=== PATIENT | male | born 1980 | race American Indian/Alaskan Native ===

== ENCOUNTER 2016-11-01 12:31 | Emergency (ER) | payer MEDICAID ==
[2016-11-01 13:42] LABS: RBC URINE < 1 /hpf (0-3); URINE BILIRUBIN NEGATIVE (NEGATIVE); URINE BLOOD NEGATIVE (NEGATIVE); URINE COLOR Yellow (YELLOW); URINE GLUCOSE (UA) NORMAL (Normal); URINE KETONE NEGATIVE (NEGATIVE); URINE LEUKOCYTE ESTERASE NEG Leu/uL (Negative); URINE PROTEIN NEGATIVE (NEGATIVE); URINE UROBILINOGEN NORMAL mg/dL (0.2-1.0); WBC URINE 2 /hpf (0-5)
--- NOTE | 2016-11-01 13:59 | C.PDOC ---
History Of Present Illness Pt has multiple medical complaints, including sore throat, abdominal discomfort and urinary symptoms. Time Seen by Provider: 11/01/16 12:46 Chief Complaint (Nursing): Medical Clearance History Per: Patient Onset/Duration Of Symptoms: Days (few) Current Symptoms Are (Timing): Still Present Severity: Moderate Additional History Per: Prior Records Past Medical History Reviewed: Historical Data, Nursing Documentation, Vital Signs Vital Signs: Last Vital Signs Temp 98.5 F 11/01/16 12:37 Pulse 84 11/01/16 12:37 Resp 18 11/01/16 12:37 BP 131/74 11/01/16 12:37 Pulse Ox 99 11/01/16 12:37 - Medical History PMH: No Chronic Diseases Surgical History: No Surg Hx - [facility] Procedures APPLICATION OF SPLINT (03/14/13) TETANUS TOXOID ADMINIST (10/31/12) Family History: States: Unknown Family Hx - Social History Hx Tobacco Use: No Hx Alcohol Use: No Hx Substance Use: No - Immunization History Hx Tetanus Toxoid Vaccination: No Hx Influenza Vaccination: No Hx Pneumococcal Vaccination: No Review Of Systems Except As Marked, All Systems Reviewed And Found Negative. Constitutional: Negative for: Fever ENT: Positive for: Throat Pain. Negative for: Nose Congestion Cardiovascular: Negative for: Chest Pain Respiratory: Negative for: Cough, Shortness of Breath Gastrointestinal: Negative for: Vomiting Genitourinary: Negative for: Hematuria, Penile Discharge, Scrotal Pain Musculoskeletal: Negative for: Neck Pain, Back Pain Skin: Negative for: Rash Neurological: Negative for: Weakness, Numbness, Seizures, Altered Mental Status Physical Exam - Physical Exam Appears: Non-toxic, No Acute Distress Skin: Normal Color, Warm, Dry, No Rash Head: Atraumatic, Normacephalic Eye(s): bilateral: Normal Inspection, PERRL, EOMI Throat: Erythema, No Drooling, No Mass Neck: Normal ROM, Supple Cardiovascular: Rhythm Regular Respiratory: Normal Breath Sounds, No Accessory Muscle Use Gastrointestinal/Abdominal: Soft, No Tenderness, No Distention Back: No CVA Tenderness Male Genital: No Testicular Tenderness, No Testicular Swelling, No Inguinal Tenderness, No Inguinal Swelling, No Scrotal Swelling, Circumcised Extremity: Normal ROM Neurological/Psych: Oriented x3, Normal Speech, Normal Motor, Normal Sensation ED Course And Treatment O2 Sat by Pulse Oximetry: 99 Pulse Ox Interpretation: Normal Reassessment Condition: Improved Disposition Counseled Patient/Family Regarding: Studies Performed, Diagnosis, Need For Followup, Rx Given - Disposition Disposition: HOME/ ROUTINE Disposition Time: 13:59 Condition: STABLE Additional Instructions: Drink plenty of fluids. Follow up with your doctor or in the clinic. Return to the ER if you develop fever, vomiting, worsening of symptoms or if you have any other concerns. Prescriptions: Amoxicillin 875 mg PO BID #20 tab L.acidoph,Paracasei, B.lactis [Probiotic] 1 each PO BID #60 capsule Instructions: Pharyngitis (ED) Forms: [facility] (American) - Clinical Impression Clinical Impression: Pharyngitis
[2016-11-01 14:20] VITALS: BP 157/92; PULSE 68; RESP 16; TEMP 97.9; O2SAT 98
== END 2016-11-01 14:20 | disposition home or self-care (01) ==
LOC: C.ER 12:31
DX: J02.9 Acute pharyngitis, unspecified (principal); Z87.891 Personal history of nicotine dependence

== ENCOUNTER 2016-11-15 06:51 | Emergency (ER) | payer MEDICAID ==
[2016-11-15 07:03] VITALS: O2SAT 98
[2016-11-15] MEDS ORDERED: Sodium Chloride 0.9% 1,000 ML IV STA (07:38)
[2016-11-15] MEDS ORDERED: Sodium Chloride 0.9% 1,000 ML ONE (08:29)
[2016-11-15 08:34] LABS: BASO % 0.4 % (0.0-2.0); EOS # 0.1 K/uL (0.0-0.7); HEMATOCRIT 43.7 % (35.0-51.0); LYMPH # 1.6 K/uL (1.0-4.3); MEAN CELL VOLUME 78.6 fL (80.0-94.0); MEAN CORPUSCULAR HEMOGLOBIN 26.2 pg (27.0-31.0); MEAN CORPUSCULAR HGB CONC 33.3 g/dL (33.0-37.0); MEAN PLATELET VOLUME 9.6 fL (7.2-11.7); MONO # 0.4 K/uL (0.0-0.8); MONO % 8.2 % (0.0-10.0); NRBC % 0.1 % (0.0-2.0); RED CELL DISTRIBUTION WIDTH 13.2 % (11.5-14.5); WHITE BLOOD COUNT 4.4 K/uL (4.8-10.8)
[2016-11-15 08:43] LABS: CHLORIDE 105 mmol/L (98-107); SODIUM 140 mmol/L (132-148)
[2016-11-15 08:46] LABS: ALB/GLOB RATIO 1.6 (1.0-2.1); ALKALINE PHOSPHATASE 59 U/L (38-126); ALT/SGPT 54 U/L (21-72); AST/SGOT 32 U/L (17-59); BILIRUBIN,TOTAL 0.5 mg/dL (0.2-1.3); BLOOD UREA NITROGEN 15 mg/dL (9-20); CALCIUM 8.5 mg/dl (8.6-10.4); CARBON DIOXIDE 24 mmol/L (22-30); GLUCOSE,RANDOM 89 mg/dL (75-110); TOTAL PROTEIN 6.6 g/dL (6.3-8.3)
[2016-11-15 08:48] LABS: GFR AFRICAN-AMERICAN > 60
[2016-11-15 09:01] LABS: RBC URINE 10 /hpf (0-3); URINE BACTERIA RARE (<OCC); URINE BILIRUBIN NEGATIVE (NEGATIVE); URINE BLOOD NEGATIVE (NEGATIVE); URINE COLOR Yellow (YELLOW); URINE GLUCOSE (UA) NORMAL (Normal); URINE KETONE NEGATIVE (NEGATIVE); URINE LEUKOCYTE ESTERASE NEG Leu/uL (Negative); URINE PROTEIN NEGATIVE (NEGATIVE); URINE UROBILINOGEN NORMAL mg/dL (0.2-1.0)
[2016-11-15 09:02] LABS: WBC URINE 2 /hpf (0-5)
--- NOTE | 2016-11-15 09:45 | US ---
HISTORY: epigastric pain COMPARISON: None. TECHNIQUE: Sonographic evaluation of the right upper quadrant of the abdomen. FINDINGS: LIVER: Measures 14.3 cm in length. Normal echogenicity of the liver parenchyma. No mass. No intrahepatic bile duct dilatation. GALLBLADDER: Unremarkable. No gallstones. COMMON BILE DUCT: Measures 3.7 mm. No stones. No dilatation. PANCREAS: Unremarkable as visualized. No mass. No ductal dilatation. RIGHT KIDNEY: Measures 11.7 x 4.7 x 5.5 cm in length. Normal echogenicity. No calculus, mass, or hydronephrosis. AORTA: No aneurysmal dilatation. IVC: Unremarkable. OTHER FINDINGS: None . IMPRESSION: No evidence of acute pathology at the right upper abdomen.
[2016-11-15] MEDS ORDERED: Iohexol 240 (50 ml) PO STA (10:55)
[2016-11-15] MEDS ORDERED: Iohexol 300 100 ML IJ ONE (11:05)
--- NOTE | 2016-11-15 11:25 | C.PDOC ---
History Of Present Illness 36-year-old male, presents to the emergency department with complaints of two- week duration of abdominal pain. States he was given medication that didn't help. States he feels associated nausea, which worsens with food intake. Patient is also complaining of left sided eye pain and redness. Denies fevers or chills. No visual changes. Time Seen by Provider: 11/15/16 07:30 Chief Complaint (Nursing): Abdominal Pain History Per: Patient History/Exam Limitations: no limitations Past Medical History Reviewed: Historical Data, Nursing Documentation, Vital Signs Vital Signs: Last Vital Signs Temp 97.9 F 11/15/16 14:25 Pulse 61 11/15/16 14:25 Resp 18 11/15/16 14:25 BP 142/73 11/15/16 14:25 Pulse Ox 98 11/15/16 14:36 - [facility] Procedures APPLICATION OF SPLINT (03/14/13) TETANUS TOXOID ADMINIST (10/31/12) Family History: States: No Known Family Hx - Social History Hx Tobacco Use: No Hx Alcohol Use: No Hx Substance Use: No - Immunization History Hx Tetanus Toxoid Vaccination: No Hx Influenza Vaccination: No Hx Pneumococcal Vaccination: No Review Of Systems Except As Marked, All Systems Reviewed And Found Negative. Constitutional: Negative for: Fever Eyes: Positive for: Redness (left) Cardiovascular: Negative for: Chest Pain Respiratory: Negative for: Shortness of Breath Gastrointestinal: Positive for: Nausea, Abdominal Pain Musculoskeletal: Negative for: Back Pain Neurological: Negative for: Weakness, Numbness Physical Exam - Physical Exam Appears: Non-toxic, No Acute Distress Skin: Warm, Dry, No Rash Head: Atraumatic, Normacephalic Eye(s): left: Other (conjunctivitis, erythema and yellow discharge) Nose: Normal Oral Mucosa: Moist Lips: Normal Appearing Neck: Normal ROM Cardiovascular: Rhythm Regular, No Murmur Respiratory: Normal Breath Sounds, No Accessory Muscle Use Gastrointestinal/Abdominal: Soft, Tenderness (epigastric and left upper quadrant ) Extremity: Normal ROM Neurological/Psych: Oriented x3 ED Course And Treatment - Laboratory Results Result Diagrams: 11/15/16 08:29 11/15/16 08:29 O2 Sat by Pulse Oximetry: 98 - CT Scan/US US ABDOMEN Other Rad Studies (CT/US): Read By Radiologist, Radiology Report Reviewed CT/US Interpretation: Accession No. : [id number]. Patient Name / ID : IZABELA RICH / [id number]. Exam Date : 11/15/2016 08:49:01 ( Approved ). Study Comment : Sex / Age : M / 36Y. Creator : Stephanie Thakkar. Dictator : Stephanie Thakkar. Process Improvement Analyst : Director Medical Economics : Stephanie Thakkar. Approver2 : Report Date : 11/15/2016 09:43:06. My Comment : . HISTORY: epigastric pain. COMPARISON: None. TECHNIQUE: Sonographic evaluation of the right upper quadrant of the abdomen. FINDINGS: LIVER: Measures 14.3 cm in length. Normal echogenicity of the liver parenchyma. No mass. No intrahepatic bile duct dilatation. GALLBLADDER: Unremarkable. No gallstones. COMMON BILE DUCT: Measures 3.7 mm. No stones. No dilatation. PANCREAS: Unremarkable as visualized. No mass. No ductal dilatation. RIGHT KIDNEY: Measures 11.7 x 4.7 x 5.5 cm in length. Normal echogenicity. No calculus, mass, or hydronephrosis. AORTA: No aneurysmal dilatation. IVC: Unremarkable. OTHER FINDINGS: None . IMPRESSION: No evidence of acute pathology at the right upper abdomen. CT abdomen/pelvis Other Rad Studies (CT/US): Read By Radiologist, Radiology Report Reviewed CT/US Interpretation: PROCEDURE: CT Abdomen and Pelvis with contrast. HISTORY : abdominal pain/nausea. COMPARISON: Comparison is made to previous same-day ultrasound of the abdomen. TECHNIQUE: Contrast dose: 100 mL of Omnipaque 300. Axial and reformatted coronal and sagittal CT images of the abdomen and pelvis were obtained after IV contrast administration. Oral contrast was given. Radiation dose: Total exam DLP = 543.5 mGy-cm. This CT exam was performed using one or more of the following dose reduction techniques: Automated exposure control, adjustment of the mA and/or kV according to patient size, and/ or use of iterative reconstruction technique. FINDINGS: LOWER THORAX: Unremarkable. LIVER: Unremarkable. No gross lesion or ductal dilatation. GALLBLADDER AND BILE DUCTS: Unremarkable. PANCREAS: Unremarkable. No gross lesion or ductal dilatation. SPLEEN: Unremarkable. ADRENALS: Unremarkable. No mass. KIDNEYS AND URETERS: Unremarkable. No hydronephrosis. No solid mass. VASCULATURE: Unremarkable. No aortic aneurysm. BOWEL: There is mild diffuse small bowel wall thickening. The stomach is not distended. No evidence of bowel obstruction. Mild large bowel wall thickening versus incomplete distention. APPENDIX: Normal appendix. PERITONEUM: Unremarkable. No free fluid. No free air. LYMPH NODES: Unremarkable. No enlarged lymph nodes. BLADDER: Unremarkable. REPRODUCTIVE: Unremarkable. BONES: No acute fracture. OTHER FINDINGS: None. IMPRESSION: No evidence of cholecystitis pancreatitis or appendicitis. Mild small-bowel wall thickening suspicious for enteritis. Questionable mild large bowel wall thickening versus incomplete distention. Otherwise no evidence of acute pathology. Medical Decision Making Medical Decision Making: On re-exm patient feels better and is stable to be d/c home with PMD and Electric Power Machine Operator follow up. Disposition - Disposition Referrals: Jens Chavez MD [Staff Provider] - Disposition: HOME/ ROUTINE Disposition Time: 14:33 Condition: STABLE Additional Instructions: Follow up with PMD and Electric Power Machine Operator within 1-2 days. Return to Ed if feel worse. Prescriptions: Ciprofloxacin 0.3% [Ciloxan 0.3% Ophth SOLN] 1 drop OS Q2 #1 bottle Pantoprazole Sodium [Protonix] 40 mg PO QAM #30 ect Ondansetron ODT [Zofran ODT] 4 mg PO .Q4-6H PRN #20 odt PRN Reason: Nausea/Vomiting Instructions: Abdominal Pain (ED) Forms: [employer] (Belarusian) - Clinical Impression Clinical Impression: Abdominal pain - Scribe Statement Laura Doe All medical record entries made by the Scribe were at my direction and personally dictated by me. I have reviewed the chart and agree that the record accurately reflects my personal performance of the history, physical exam, medical decision making, and the department course for this patient. I have also personally directed, reviewed, and agree with the discharge instructions and disposition.
[2016-11-15] MEDS ORDERED: Iohexol 240 (50 ml) ONE (12:17)
--- NOTE | 2016-11-15 14:23 | CT ---
PROCEDURE: CT Abdomen and Pelvis with contrast HISTORY: abdominal pain/nausea COMPARISON: Comparison is made to previous same-day ultrasound of the abdomen. TECHNIQUE: Contrast dose: 100 mL of Omnipaque 300. Axial and reformatted coronal and sagittal CT images of the abdomen and pelvis were obtained after IV contrast administration. Oral contrast was given. Radiation dose: Total exam DLP = 543.5 mGy-cm. This CT exam was performed using one or more of the following dose reduction techniques: Automated exposure control, adjustment of the mA and/or kV according to patient size, and/or use of iterative reconstruction technique. FINDINGS: LOWER THORAX: Unremarkable. LIVER: Unremarkable. No gross lesion or ductal dilatation. GALLBLADDER AND BILE DUCTS: Unremarkable. PANCREAS: Unremarkable. No gross lesion or ductal dilatation. SPLEEN: Unremarkable. ADRENALS: Unremarkable. No mass. KIDNEYS AND URETERS: Unremarkable. No hydronephrosis. No solid mass. VASCULATURE: Unremarkable. No aortic aneurysm. BOWEL: There is mild diffuse small bowel wall thickening. The stomach is not distended. No evidence of bowel obstruction. Mild large bowel wall thickening versus incomplete distention. APPENDIX: Normal appendix. PERITONEUM: Unremarkable. No free fluid. No free air. LYMPH NODES: Unremarkable. No enlarged lymph nodes. BLADDER: Unremarkable. REPRODUCTIVE: Unremarkable. BONES: No acute fracture. OTHER FINDINGS: None. IMPRESSION: No evidence of cholecystitis pancreatitis or appendicitis. Mild small-bowel wall thickening suspicious for enteritis. Questionable mild large bowel wall thickening versus incomplete distention. Otherwise no evidence of acute pathology.
[2016-11-15 14:25] VITALS: BP 142/73; PULSE 61; RESP 18; TEMP 97.9
== END 2016-11-15 14:52 | disposition home or self-care (01) ==
LOC: C.ER 06:51
DX: R10.13 Epigastric pain (principal)
CPT/HCPCS: 74177; 76705; 80053; 81001; 83690; 85025; 96361; 96374; 96375; 99285; C9113; J2405; J7040; Q9966; Q9967

== ENCOUNTER 2016-12-16 18:09 | Emergency (ER) | payer MEDICAID ==
[2016-12-16 18:27] VITALS: BP 131/88; PULSE 68; RESP 16; TEMP 98; O2SAT 100
[2016-12-16 19:40] LABS: URINE BACTERIA RARE (<OCC); URINE BILIRUBIN NEGATIVE (NEGATIVE); URINE BLOOD NEGATIVE (NEGATIVE); URINE COLOR Yellow (YELLOW); URINE GLUCOSE (UA) NORMAL (Normal); URINE KETONE NEGATIVE (NEGATIVE); URINE LEUKOCYTE ESTERASE NEG Leu/uL (Negative); URINE PROTEIN NEGATIVE (NEGATIVE); URINE UROBILINOGEN NORMAL mg/dL (0.2-1.0); WBC URINE < 1 /hpf (0-5)
--- NOTE | 2016-12-16 20:05 | C.PDOC ---
History Of Present Illness 36 year old male presents to the ED with complaints of abdominal pain, "hot urine" when voiding, and throat pain for three days. Patient reports he went to the doctor for his throat symptoms and was given Zithromax which he completed but with no improvement. He denies penile discharge, vomiting, diarrhea, hematuria, cough, fever, or runny nose. Time Seen by Provider: 12/16/16 19:07 Chief Complaint (Nursing): Male Genitourinary History Per: Patient History/Exam Limitations: no limitations Onset/Duration Of Symptoms: Days (3 days ) Current Symptoms Are (Timing): Still Present Quality Of Discomfort: Burning Associated Symptoms: Urinary Symptoms (dysuria ). denies: Fever, Chills, Nausea , Vomiting, Diarrhea Alleviating Factors: None Recent travel outside of the [place]: No Additional History Per: Prior Records Past Medical History Reviewed: Historical Data, Nursing Documentation, Vital Signs Vital Signs: Last Vital Signs Temp 98.0 F 12/16/16 18:25 Pulse 68 12/16/16 18:25 Resp 16 12/16/16 18:25 BP 131/88 12/16/16 18:25 Pulse Ox 100 12/16/16 23:20 - [facility] Procedures APPLICATION OF SPLINT (03/14/13) TETANUS TOXOID ADMINIST (10/31/12) Family History: States: Unknown Family Hx - Social History Hx Tobacco Use: No Hx Alcohol Use: No Hx Substance Use: No - Immunization History Hx Tetanus Toxoid Vaccination: No Hx Influenza Vaccination: No Hx Pneumococcal Vaccination: No Review Of Systems Except As Marked, All Systems Reviewed And Found Negative. Constitutional: Negative for: Fever, Chills ENT: Positive for: Throat Pain Respiratory: Negative for: Cough, Shortness of Breath Gastrointestinal: Positive for: Abdominal Pain. Negative for: Nausea, Vomiting , Diarrhea Genitourinary: Positive for: Dysuria. Negative for: Hematuria, Penile Discharge Skin: Negative for: Rash Physical Exam - Physical Exam Appears: Non-toxic, No Acute Distress Skin: Warm, Dry, No Rash Head: Atraumatic, Normacephalic Eye(s): bilateral: Normal Inspection, PERRL, EOMI Ear(s): Bilateral: Normal Nose: Normal, No Discharge Oral Mucosa: Moist Throat: Erythema (mildly erythematus ), No Exudate, Other (Right tonsillar swelling ) Neck: Normal ROM, Supple Chest: Symmetrical, No Deformity, No Tenderness Cardiovascular: Rhythm Regular, No Friction Rub, No Murmur Respiratory: No Rales, No Rhonchi, No Wheezing, Other (clear to auscultation bilaterally ) Gastrointestinal/Abdominal: Soft, No Tenderness, No Distention, No Guarding, No Rebound Back: Normal Inspection, No CVA Tenderness Extremity: Normal ROM, No Swelling Neurological/Psych: Oriented x3, Normal Motor, Normal Sensation Gait: Steady ED Course And Treatment O2 Sat by Pulse Oximetry: 100 (RA) Pulse Ox Interpretation: Normal Progress Note: UA and urine culture were ordered. Patient was given Zithromax. Patient did not want to wait for the Rocephin injection and requesting to leave now. Medical Decision Making Medical Decision Making: Old records reviewed, the patient was last seen for STD symptoms 03/2016 and was treated with Zithromax and Rocephin. Disposition - Disposition Referrals: [facility] [Outside] Disposition: HOME/ ROUTINE Disposition Time: 20:02 Condition: GOOD Additional Instructions: Follow up with the medical doctor within 1-2 days. Return if worsened. Prescriptions: Doxycycline Hyclate 100 mg PO BID #14 cap Ibuprofen [Motrin] 600 mg PO TID #21 tab predniSONE [Prednisone] 20 mg PO BID #10 tab Instructions: Nonspecific Urethritis in Men (ED) Forms: [facility] [facility] (German) - Clinical Impression Clinical Impression: Urethritis - PA / CUTTER FINISHER / Resident Statement MD/DO has reviewed & agrees with the documentation as recorded. - Scribe Statement The provider has reviewed the documentation as recorded by the Scribjanay Bass All medical record entries made by the Angusibjanay were at my direction and personally dictated by me. I have reviewed the chart and agree that the record accurately reflects my personal performance of the history, physical exam, medical decision making, and the department course for this patient. I have also personally directed, reviewed, and agree with the discharge instructions and disposition.
== END 2016-12-16 20:19 | disposition home or self-care (01) ==
LOC: C.ER 18:09
DX: N34.2 Other urethritis (principal)